=== PATIENT | female | born 1935 | race Caucasian/White ===

== ENCOUNTER 2020-01-13 09:50 | Emergency (ER) | payer MEDICARE, OTHER ==
[~2020-01-13] VITALS: Ht 152.4 cm; Wt 58.1 kg
--- NOTE | 2020-01-13 10:07 | NUR ---
Dr. Figueredo at bedside for MSE
[2020-01-13] MEDS ORDERED: ACETAMINOPHEN ES 500 MG TABLET ONE (10:18)
[2020-01-13] MEDS: ACETAMINOPHEN ES 500 MG TABLET PO ONE (10:19)
--- NOTE | 2020-01-13 12:24 | NUR ---
Patient discharged to home in stable condition. Written and verbal after care instructions given. Patient verbalizes understanding of instructions. Stressed follow up or return to ER for worsening s/s. Patient ambulated with steady gait. NAD noted
[2020-01-13 12:25] VITALS: BP 132/61
== END 2020-01-13 12:24 | disposition home or self-care (01) ==
LOC: ER 09:52
DX: S13.9XXA Sprain of joints and ligaments of unspecified parts of neck, initial encounter (principal); S23.3XXA Sprain of ligaments of thoracic spine, initial encounter; V43.62XA Car passenger injured in collision with other type car in traffic accident, initial encounter; Y92.410 Unspecified street and highway as the place of occurrence of the external cause; E78.00 Pure hypercholesterolemia, unspecified
CPT/HCPCS: 72072; 72125; A4663; A9150